=== PATIENT | male | born 1980 | race Caucasian/White ===

== ENCOUNTER 2017-02-28 19:33 | Emergency (ER) | payer OTHER ==
[2017-02-28 19:42] VITALS: BP 132/80; PULSE 62; TEMP 98.3; BMI 34.9
--- NOTE | 2017-02-28 20:41 | PDOC ---
Attending Attestation - Resident Resident Name: Logan Smith - ED Attending Attestation I have performed the following: I have examined & evaluated the patient, The case was reviewed & discussed with the resident, I agree w/resident's findings & plan, Exceptions are as noted - HPI HPI: 02/28/17 20:38 Left testicular pain for two days. Denies trauma. Pt has no past medical history - Physicial Exam PE: 02/28/17 20:39 *Physical Exam General Appearance: Yes: Appropriately Dressed. No: Apparent Distress, Intoxicated HEENT: positive: EOMI, MARA, Normal ENT Inspection, Normal Voice, TMs Normal, Pharynx Normal. negative: Pale Conjunctivae, Photophobia, Scleral Icterus (R), Scleral Icterus (L) Neck: positive: Trachea midline, Normal Thyroid, Supple. negative: Tender, Rigid, Carotid bruit, Stridor, Lymphadenopathy (R), Lymphadenopathy (L), Thyromegaly Respiratory/Chest: positive: Lungs Clear, Normal Breath Sounds. negative: Chest Tender, Respiratory Distress, Accessory Muscle Use, Labored Respiration, RES, Crackles, Rales, Rhonchi, Stridor, Wheezing, Dullness Cardiovascular: positive: Regular Rhythm, Regular Rate, S1, S2. negative: Edema , JVD, Murmur, Bradycardia, Tachycardia Vascular Pulses: Dorsalis-Pedis (R): 2+, Doralis-Pedis (L): 2+ Gastrointestinal/Abdominal: positive: Normal Bowel Sounds, Flat, Soft. negative : Tender, Organomegaly, Pulsatile Mass, Increased Bowel Sounds, Decreased BS, Distended, Guarding, Rebound, Hernia, Hepatomegaly, Spleenomegaly Lymphatic: negative: Adenopathy, Tenderness Musculoskeletal: positive: Normal Inspection. negative: CVA Tenderness, Decreased Range of Motion Extremity: positive: Normal Capillary Refill, Normal Inspection, Normal Range of Motion, Pelvis Stable. negative: Tender, Pedal Edema, Swelling, Erythema Integumentary: positive: Normal Color, Dry, Warm. negative: Cyanotic, Erythema , Jaundice, Rash Neurologic: positive: grocery clerk II-XII NML intact, Fully Oriented, Alert, Normal Mood/ Affect, Motor Strength 5/5. negative: EOM Palsy, Facial Droop, Sensory Deficit - Medical Decision Making 03/05/17 19:35 US done. No pathology. Pt discharged
[2017-02-28] MEDS ORDERED: IBUPROFEN 600 MG TABLET (FP) PO ONE ×2 (21:00→21:05)
[2017-02-28 21:09] LABS: MCH 29.8 pg (25.7-33.7); MCHC 33.4 g/dl (32.0-35.9); MEAN CELL VOLUME 89.3 fl (80-96); MEAN PLT VOLUME 9.2 fl (7.5-11.1); PLATELET COUNT 227 K/MM3 (134-434); RDW 14.5 % (11.9-15.9); WHITE BLOOD COUNT 5.6 K/mm3 (4.0-10.0)
--- NOTE | 2017-02-28 21:12 | PDOC ---
History of Present Illness - General Chief Complaint: Pain Stated Complaint: BACK PAIN Time Seen by Provider: 02/28/17 20:27 History Source: Patient Exam Limitations: Language Barrier - History of Present Illness Initial Comments: 02/28/17 21:02 Patient is a 36M with no significant medical history here today complaining of 2 days of left sided testicular pain and 2 weeks of back pain. The testicular pain does not radiate, and the patient has no history of kidney stones. Patient denies fevers, chills, and pain with urination. Patient is sexually active. No blood with urination. The back pain started two weeks ago. The pain is located in the lower left aspect of his back and radiates down the left leg. The radiating pain is a tingling down the back of left leg down to his foot. He is unsure of any inciting event. Past History - Past Medical History Allergies/Adverse Reactions: Allergies Allergy/AdvReac Type Severity Reaction Status Date / Time No Known Allergies Allergy Verified 02/28/17 19:39 Home Medications: Ambulatory Orders Azithromycin [Zithromax Z-JUDE (5 DAYS)] 250 mg PO DAILY #6 tablet 01/08/15 Promethazine/Phenyleph/Codeine [Phenergan VC+Codeine Syrup] 5 ml PO TID #60 ml 01/08/15 Other medical history: Pt denies - Suicide/Smoking/Psychosocial Hx Smoking Status: No Smoking History: Never smoked Have you smoked in the past 12 months: No Number of Cigarettes Smoked Daily: 0 Information on smoking cessation initiated: No Hx Alcohol Use: No Drug/Substance Use Hx: No Substance Use Type: None Review of Systems - Review of Systems Comments:: 02/28/17 21:12 GENERAL/CONSTITUTIONAL: No fever or chills. No weakness. HEAD, EYES, EARS, NOSE AND THROAT: No change in vision. No sore throat. CARDIOVASCULAR: No chest pain or shortness of breath RESPIRATORY: No cough, wheezing, or hemoptysis. GASTROINTESTINAL: No nausea, vomiting, diarrhea or constipation. GENITOURINARY: No dysuria, frequency, or change in urination. MUSCULOSKELETAL: Positive for back and left leg pain. SKIN: No rash NEUROLOGIC: No headache, vertigo, loss of consciousness, or change in strength/ sensation. ENDOCRINE: No increased thirst. No abnormal weight change HEMATOLOGIC/LYMPHATIC: No anemia, easy bleeding, or history of blood clots. ALLERGIC/IMMUNOLOGIC: No hives or skin allergy. *Physical Exam - Vital Signs Last Vital Signs Temp Pulse Resp BP Pulse Ox 98.3 F 62 18 132/80 100 02/28/17 19:39 02/28/17 19:39 02/28/17 19:39 02/28/17 19:39 02/28/17 19:39 - Physical Exam Comments: 02/28/17 21:12 GENERAL: Awake, alert, and fully oriented, in no acute distress HEAD: No signs of trauma, normocephalic, atraumatic EYES: PERRLA, EOMI, sclera anicteric, conjunctiva clear ENT: Auricles normal inspection, hearing grossly normal, nares patent, oropharynx clear without exudates. Moist mucosa NECK: Normal ROM, supple, no lymphadenopathy, JVD, or masses LUNGS: No distress, speaks full sentences, clear to auscultation bilaterally HEART: Regular rate and rhythm, normal S1 and S2, no murmurs, rubs or gallops, peripheral pulses normal and equal bilaterally. ABDOMEN: Soft, nontender, normoactive bowel sounds. No guarding, no rebound. No masses EXTREMITIES: Normal inspection, Normal range of motion, no edema. No clubbing or cyanosis. NEUROLOGICAL: Cranial nerves II through XII grossly intact. Normal speech, normal gait, no focal sensorimotor deficits SKIN: Warm, Dry, normal turgor, no rashes or lesions noted. : Normal uncircumcised external genitalia, pain is alleviated with elevation of left testicle. No hernias, no masses. ED Treatment Course - LABORATORY CBC & Chemistry Diagram: 02/28/17 20:36 02/28/17 20:36 - RADIOLOGY Radiology Studies Ordered: Category Date Time Status SCROTUM AND CONTENTS US [US] Stat Ultrasound 02/28/17 20:33 Ordered Medical Decision Making - Medical Decision Making 02/28/17 21:14 Patient is 36M otherwise healthy with back and testicular pain. Back pain is most likely sciata, no red flag symptoms. Will give ibuprofen. Testicular pain alleviated with elevation of testicle, no other abnormalities seen on exam. Vital signs stable, normal. Will do basic labs, ua, and testicular ultrasound. Differential diagnosis includes, but is not limited to: epididymitis, orchitis, and torsion. Exam most consistent with epididymitis. 02/28/17 22:00 Laboratory Tests 02/28/17 20:36 WBC 5.6 Hgb 14.1 Hct 42.3 Plt Count 227 CBC normal, CMP normal. UA normal pending LE. US pending. 03/01/17 03:41 US negative. Given azithromycin 2g and 250mg rocephin IM. Given discharge precautions and told to follow up with PCP. Discharged. *DC/Admit/Observation/Transfer Diagnosis at time of Disposition: Acute epididymitis - Discharge Dispostion Disposition: HOME Condition at time of disposition: Good Admit: No - Referrals Referrals: Panchito Martinez [Primary Care Provider] - - Patient Instructions Printed Discharge Instructions: DI for Epididymitis
[2017-02-28 21:14] LABS: URINE APPEARANCE CLEAR; URINE BILIRUBIN NEGATIVE (NEGATIVE); URINE BLOOD NEGATIVE (NEGATIVE); URINE COLOR YELLOW; URINE GLUCOSE (UA) NEGATIVE (NEGATIVE); URINE KETONE NEGATIVE (NEGATIVE); URINE NITRITE NEGATIVE (NEGATIVE); URINE PROTEIN NEGATIVE (NEGATIVE); URINE UROBILINOGEN 4.0 E.U/dl mg/dL (0.2-1.0)
[2017-02-28 21:35] LABS: ALBUMIN 3.9 g/dl (3.4-5.0); ANION GAP 7 (8-16); BILIRUBIN,TOTAL 0.5 mg/dL (0.2-1.0); CALCIUM 8.9 mg/dL (8.5-10.1); CO2 29 mmol/L (21-32); GLUCOSE,RANDOM 89 mg/dL (74-106); SGOT/AST 17 U/L (15-37); SGPT/ALT 43 U/L (12-78); TOT PROT 7.9 g/dl (6.4-8.2)
[2017-02-28 21:36] LABS: ALK PHOS 70 U/L (45-117)
[2017-02-28] MEDS ORDERED: AZITHROMYCIN 500 MG TABLET PO ONE (22:18)
[2017-02-28] MEDS ORDERED: cefTRIAXone SODIUM 1 GM VIAL ONE (22:25)
[2017-02-28] MEDS ORDERED: LIDOCAINE HCL 1%, 10 MG/ML (20ML VIAL) ONE (22:25)
[2017-02-28] MEDS ORDERED: AZITHROMYCIN 250 MG TABLET ONE (22:38)
[2017-02-28] MEDS ORDERED: AZITHROMYCIN 600 MG TABLET PO ONE (22:51)
[2017-02-28 23:23] LABS: URINE LEUK ESTERASE Negative (NEGATIVE)
== END 2017-02-28 22:55 | disposition home or self-care (01) ==
LOC: JERFT 19:33
DX: N45.1 Epididymitis (principal)
CPT/HCPCS: 36415; 76870-TC; 80053; 81003; 85027; 87491; 87591; 96372; 99283-25

== ENCOUNTER 2021-11-19 07:47 | Emergency (ER) | payer OTHER ==
[2021-11-19 07:52] VITALS: BP 125/80; PULSE 87; TEMP 98; BMI 37.4
[2021-11-19] MEDS ORDERED: ACETAMINOPHEN 1000 MG/100 ML BAG IVPB ONE (08:50)
[2021-11-19] MEDS ORDERED: SODIUM CHLORIDE 0.9% 500 ML INFUS.BAG IV ONE (08:50)
[2021-11-19] MEDS ORDERED: METOCLOPRAMIDE HCL INJECTION 10 MG/2 ML VIAL ONE (08:50)
[2021-11-19] MEDS ORDERED: METOCLOPRAMIDE HCL INJECTION 10 MG/2 ML VIAL IVPUSH ONE (08:50)
[2021-11-19] MEDS ORDERED: ACETAMINOPHEN INJECTION 100 ML IVPB ONE (08:50)
== END 2021-11-19 10:35 | disposition home or self-care (01) ==
LOC: JER 07:47
PROC: 3E0333Z Introduction of Anti-inflammatory into Peripheral Vein, Percutaneous Approach (ICD-10-PCS; principal; 2021-11-19)
PROC: 3E033GC Introduction of Other Therapeutic Substance into Peripheral Vein, Percutaneous Approach (ICD-10-PCS; 2021-11-19)
DX: R51.9 Headache, unspecified (principal)
CPT/HCPCS: 99284-25

== ENCOUNTER 2023-03-29 00:59 | Observation (INO) | payer OTHER ==
[2023-03-29 01:07] VITALS: BP 132/86; PULSE 58; RESP 18; TEMP 97.7; BMI 34.1
[2023-03-29] MEDS ORDERED: ACETAMINOPHEN 500 MG TABLET (FP) PO ONE (01:24)
[2023-03-29] MEDS ORDERED: ACETAMINOPHEN 325 MG TABLET (FP) ONE (01:27)
[2023-03-29 01:43] LABS: BASO % 1.1 % (0-2.0); EOS % 2.4 % (0-4.5); HEMATOCRIT 44.3 % (35.4-49); HEMOGLOBIN 14.7 GM/dL (11.7-16.9); LYMPH % 47.6 % (8-40); MCH 29.4 pg (25.7-33.7); MCHC 33.3 g/dl (32.0-35.9); MEAN CELL VOLUME 88.3 fl (80-96); MEAN PLT VOLUME 9.3 fl (7.5-11.1); MONO % 6.9 % (3.8-10.2); PLATELET COUNT 238 10^3/uL (134-434); RBC 5.02 M/mm3 (4.00-5.60); RDW 15.4 % (11.9-15.9); WHITE BLOOD COUNT 5.8 K/mm3 (4.0-10.0)
[2023-03-29 01:46] LABS: EPI CELLS 3 /uL (0-25.1); HYALINE CASTS 0 /uL (0-3.1); PH,URINE 5.5 (5.0-8.0); URINE APPEARANCE CLEAR; URINE BACTERIA 9 /uL (0-1359); URINE BILIRUBIN NEGATIVE (NEGATIVE); URINE COLOR YELLOW; URINE GLUCOSE (UA) NEGATIVE (NEGATIVE); URINE KETONE NEGATIVE (NEGATIVE); URINE LEUK ESTERASE NEGATIVE (NEGATIVE); URINE NITRITE NEGATIVE (NEGATIVE); URINE PROTEIN NEGATIVE (NEGATIVE); URINE RBC 114 /uL (0-23.9); URINE WBC 16 /uL (0-25.8)
[2023-03-29 02:00] LABS: PROTHROMBIN TIME (PATIENT) 11.6 SEC (9.7-13.0)
[2023-03-29 02:03] LABS: ACTIVATED PTT 30.1 SECONDS (25.2-36.5)
[2023-03-29 02:25] LABS: POTASSIUM 4.1 mmol/L (3.5-5.1)
[2023-03-29 02:28] LABS: BLOOD UREA NITROGEN 14.2 mg/dL (7-18)
[2023-03-29 02:32] LABS: BILIRUBIN,TOTAL 0.7 mg/dL (0.2-1); TOT PROT 7.7 g/dl (6.4-8.2)
[2023-03-29] MEDS ORDERED: KETOROLAC TROMETHAMINE 15 MG/ML VIAL IVPUSH ONE (03:57)
[2023-03-29] MEDS ORDERED: KETOROLAC TROMETHAMINE 15 MG/ML VIAL ONE (04:04)
[2023-03-29] MEDS ORDERED: SODIUM CHLORIDE 0.9% 500 ML INFUS.BAG IV ONE (05:39)
[2023-03-29] MEDS ORDERED: TAMSULOSIN HCL 0.4 MG CAP PO ONE (05:40)
[2023-03-29] MEDS ORDERED: TAMSULOSIN HCL 0.4 MG CAP ONE (05:44)
[2023-03-29] MEDS ORDERED: ACETAMINOPHEN 1000 MG/100 ML BAG IVPB PRN (07:30)
[2023-03-29] MEDS ORDERED: SODIUM CHLORIDE 1,000 ML IV SCH (07:30)
[2023-03-29] MEDS ORDERED: KETOROLAC TROMETHAMINE 15 MG/ML VIAL IVPUSH PRN (09:00)
[2023-03-30] MEDS ORDERED: TAMSULOSIN HCL 0.4 MG CAP PO SCH (08:30)
== END 2023-03-29 14:50 | disposition home or self-care (01) ==
LOC: JER 00:59 → JERBED 06:51
PROVIDERS: ADMIT Internal Medicine; ATTEND Internal Medicine
PROC: 3E0333Z Introduction of Anti-inflammatory into Peripheral Vein, Percutaneous Approach (ICD-10-PCS; principal; 2023-03-29)
PROC: 3E0337Z Introduction of Electrolytic and Water Balance Substance into Peripheral Vein, Percutaneous Approach (ICD-10-PCS; 2023-03-29)
DX: N20.0 Calculus of kidney (principal); N13.30 Unspecified hydronephrosis; R73.03 Prediabetes; K92.9 Disease of digestive system, unspecified; E66.9 Obesity, unspecified; Z68.34 Body mass index [BMI] 34.0-34.9, adult
CPT/HCPCS: 0241U-QW; 36415; 74177-TC; 80053; 81003; 83605; 85025; 85610; 85730; 87086; 93005; 93010; 96361; 96374; 99285-25; G0378

== ENCOUNTER 2023-10-14 09:50 | Emergency (ER) | payer OTHER ==
[2023-10-14 09:57] VITALS: RESP 18; BMI 36.6
[2023-10-14 10:56] LABS: BASO % 1.2 % (0-2.0); EOS % 1.2 % (0-4.5); HEMATOCRIT 43.6 % (35.4-49); HEMOGLOBIN 14.8 GM/dL (11.7-16.9); LYMPH % 51.6 % (8-40); MCH 30.5 pg (25.7-33.7); MEAN CELL VOLUME 89.7 fl (80-96); MEAN PLT VOLUME 8.6 fl (7.5-11.1); PLATELET COUNT 212 10^3/uL (134-434); RBC 4.86 M/mm3 (4.00-5.60); RDW 14.8 % (11.9-15.9); WHITE BLOOD COUNT 4.5 K/mm3 (4.0-10.0)
[2023-10-14 11:19] LABS: POTASSIUM 4.2 mmol/L (3.5-5.1)
[2023-10-14 11:20] LABS: CALCIUM 9.7 mg/dL (8.5-10.1)
[2023-10-14 11:21] LABS: ALBUMIN 4.2 g/dl (3.4-5.0)
[2023-10-14 11:25] LABS: INR 0.96 (0.83-1.09); PROTHROMBIN TIME (PATIENT) 10.9 SEC (9.7-13.0)
[2023-10-14 11:26] LABS: BILIRUBIN,TOTAL 1.1 mg/dL (0.2-1)
[2023-10-14 11:28] LABS: ACTIVATED PTT 31.7 SECONDS (25.2-36.5)
[2023-10-14 11:40] LABS: LACTIC ACID 2.3 mmol/L (0.4-2.0)
[2023-10-14 13:11] VITALS: BP 127/74; PULSE 72; TEMP 98.3
[2023-10-14] MEDS: SODIUM CHLORIDE 1,000 ML IV STA (13:13)
== END 2023-10-14 14:32 | disposition home or self-care (01) ==
LOC: JER 09:50
PROC: 3E0337Z Introduction of Electrolytic and Water Balance Substance into Peripheral Vein, Percutaneous Approach (ICD-10-PCS; principal; 2023-10-14)
PROC: 3E0337Z Introduction of Electrolytic and Water Balance Substance into Peripheral Vein, Percutaneous Approach (ICD-10-PCS; 2023-10-14)
DX: K62.5 Hemorrhage of anus and rectum (principal)
CPT/HCPCS: 36415; 80053; 82272; 83605; 85025; 85610; 85730; 86850; 86900; 86901; 99284-25